=== PATIENT | male | born 1960 | race Caucasian/White ===

== ENCOUNTER 2016-12-21 06:27 | Day surgery (SDC) | payer BC, OTHER ==
[~2016-12-21] VITALS: Ht 193 cm; Wt 147.0 kg
[2016-12-21] MEDS ORDERED: LACTATED RINGERS 1,000 ML IV SCH (06:58)
[2016-12-21] MEDS ORDERED: ALLO300T PO (07:04)
[2016-12-21] MEDS ORDERED: HYDR-3144 PO (07:04)
[2016-12-21] MEDS ORDERED: VITAMIN D PO (07:04)
[2016-12-21] MEDS ORDERED: SUPER BETA PROSTATE PO (07:04)
[2016-12-21] MEDS ORDERED: RED600CA2 PO (07:04)
[2016-12-21] MEDS ORDERED: FISH OIL PO (07:04)
[2016-12-21] MEDS ORDERED: RIVA20TA PO (07:04)
[2016-12-21 07:06] VITALS: BP 138/93
[2016-12-21] MEDS ORDERED: HYDROmorphone 1 MG/ML, 1ML IV PRN (08:00)
[2016-12-21] MEDS ORDERED: PROMETHAZINE 25 MG/ML, 1ML IV PRN (08:00)
[2016-12-21] MEDS ORDERED: ONDANSETRON 2MG/ML, 2ML IVPush PRN (08:00)
[2016-12-21] MEDS ORDERED: FENTANYL PF 100 MCG/2ML IV PRN (08:00)
[2016-12-21] MEDS ORDERED: OXYcodone 5 MG/5 ML ORAL.SOL UDC PO PRN (08:00)
[2016-12-21] MEDS ORDERED: MEPERIDINE/PF 25MG/0.5ML IVPush PRN (08:00)
[2016-12-21] MEDS ORDERED: hydrALAzine 20 MG/ML, 1ML IV PRN (08:00)
[2016-12-21] MEDS ORDERED: MIDAZOLAM 1 MG/ML, 2ML IV PRN (08:00)
[2016-12-21] MEDS ORDERED: LABETALOL 5MG/ML, 20ML IV PRN (08:00)
== END 2016-12-21 09:30 ==
LOC: OUT 06:27
PROVIDERS: ATTEND Internal Medicine Gastroenterology
DX: Z09 Encounter for follow-up examination after completed treatment for conditions other than malignant neoplasm (principal); D12.0 Benign neoplasm of cecum; D12.4 Benign neoplasm of descending colon; K57.30 Diverticulosis of large intestine without perforation or abscess without bleeding; K64.8 Other hemorrhoids; Z87.19 Personal history of other diseases of the digestive system
CPT/HCPCS: 88305